=== PATIENT | male | born 1935 | race Caucasian/White ===

== ENCOUNTER 2018-05-01 11:07 | Inpatient (IN) | payer OTHER ==
[~2018-05-01] VITALS: Ht 177.8 cm; Wt 60.8 kg
[2018-05-01 11:07] VITALS: BP 120/81
[2018-05-01] MEDS ORDERED: NACL 0.9% 1,000 ML IV ONE ×2 (12:15)
[2018-05-01 12:55] LABS: BASOPHILS # (AUTO) 0.1 K/uL (0.00-0.22); BASOPHILS % (AUTO) 1.6 % (0.0-2.0); EOSINOPHILS # (AUTO) 0.3 K/uL (0-0.4); EOSINOPHILS % (AUTO) 4.8 % (0.0-4.0); HEMATOCRIT 40.6 % (36-52); HEMOGLOBIN 13.4 g/dL (12.0-18.0); LYMPHOCYTES # (AUTO) 0.9 K/uL (2.0-11.5); LYMPHOCYTES % (AUTO) 13.3 % (20.5-51.1); MEAN CORPUSCULAR HEMOGLOBIN 31 pg (27-31); MEAN CORPUSCULAR HGB CONC 33 g/dL (33-37); MEAN CORPUSCULAR VOLUME 94.7 fL (80-94); MONOCYTES # (AUTO) 0.5 K/uL (0.8-1.0); MONOCYTES % (AUTO) 8.1 % (1.7-9.3); NEUTROPHILS # (AUTO) 4.9 K/uL (1.8-7.7); NEUTROPHILS % (AUTO) 72.2 % (42.2-75.2); PLATELET COUNT (AUTO) 299 K/uL (140-450); RED BLOOD CELL COUNT(AUTO) 4.29 MIL/uL (4.20-6.10); RED CELL DISTRIBUTION WIDTH 15.2 % (11.6-13.7); WHITE BLOOD COUNT (AUTO) 6.8 K/uL (4.8-10.8)
[2018-05-01 13:13] LABS: ALBUMIN 3.5 g/dL (3.4-5.0); ANION GAP 11.5 (8-16); ASPARTATE AMINOTRANSFERASE 20 U/L (15-37); CARBON DIOXIDE 28.6 mmol/L (21-32); CHLORIDE 101 mmol/L (98-107); CREATININE 1.7 mg/dL (0.7-1.3); GLUCOSE 90 mg/dL (74-106); POTASSIUM 4.1 mmol/L (3.5-5.1); SODIUM SERUM 137 mmol/L (136-145); TOTAL BILIRUBIN 0.5 mg/dL (0.0-1.0); UREA NITROGEN, BLOOD 33 mg/dL (7-18)
[2018-05-01 14:46] LABS: BARBITURATE, URINE NEG. ng/ml (NEG <=200); BENZODIAZEPINE, URINE NEG. ng/mL (NEG <=200); CANNABINOID, URINE NEG. ng/mL (NEG <=50); COCAINE, URINE NEG. ng/mL (NEG <=300); OPIATE, URINE NEG. ng/mL (NEG <=2000); PHENCYCLIDINE SCREEN,URINE NEG. ng/mL (NEG <=25)
[2018-05-01 15:02] LABS: APPEARANCE,URINE HAZY (CLEAR); BILIRUBIN,URINE NEGATIVE (NEGATIVE); BLOOD, URINE TRACE (NEGATIVE); COLOR,URINE YELLOW (YELLOW); LEUKOCYTE ESTERASE ,URINE NEGATIVE (NEGATIVE); NITRITE, URINE POSITIVE (NEGATIVE); PH,URINE 6.5 (5.0-9.0); UGLUCOSE NEGATIVE (NEGATIVE)
[2018-05-01] MEDS: NACL 0.9% 1,000 ML IV SCH (15:16)
[2018-05-01 15:17] LABS: RBC,URINE NONE SEEN /HPF (0-5); WBC,URINE 20-60 /HPF (0-5)
[2018-05-01] MEDS ORDERED: MORPHINE SULFATE 4 MG/ML SYR IVP PRN (15:20)
[2018-05-01] MEDS ORDERED: HYDROcodone/APAP 5/325 MG 1 TAB TAB PO PRN (15:20)
[2018-05-01] MEDS ORDERED: DOCUSATE SODIUM 100 MG GELCAP PO PRN (15:20)
[2018-05-01] MEDS ORDERED: ZOLPIDEM 5 MG TAB PO PRN (15:20)
[2018-05-01] MEDS ORDERED: ONDANSETRON 4 MG/2 ML VIAL IM/IVP PRN (15:20)
[2018-05-01] MEDS ORDERED: ACETAMINOPHEN 325 MG TAB PO PRN (15:20)
[2018-05-01] MEDS: LORazepam 2 MG/ML VIAL IM/IVP PRN (15:47)
[2018-05-01] MEDS ORDERED: cefTRIAXone 1,000 MG VIAL ONE (16:00)
[2018-05-01] MEDS ORDERED: HALOPERIDOL IM 5 MG/ML VIAL IM ONE (16:00)
[2018-05-01] MEDS ORDERED: diphenhydrAMINE 50 MG/ML VIAL IM ONE (16:00)
[2018-05-01] MEDS ORDERED: LIDOCAINE 1% ***ER ONLY *** 50 ML ONE (16:01)
[2018-05-01 16:25] LABS: CHOL/HDL RATIO 2.6 (1-4.5); MAGNESIUM 2.3 mg/dL (1.8-2.4); PHOSPHORUS 2.9 mg/dL (2.5-4.9); THYROID STIMULATING HORMONE 0.85 uIU/mL (0.34-3.74)
[2018-05-01 20:00] VITALS: BP 166/86
[2018-05-02] VITALS: BP 159/96
[2018-05-02 04:00] VITALS: BP 161/77
[2018-05-02] MEDS: NACL 0.9% 1,000 ML IV SCH ×3 (05:00→18:35)
[2018-05-02 08:00] VITALS: BP 148/86
[2018-05-02] MEDS: LACTOBACILLUS RHAMNOSUS GG 1 EACH CAP PO SCH (09:10)
[2018-05-02 12:00] VITALS: BP 133/85
[2018-05-02] MEDS ORDERED: INFLUENZA VIRUS VACCINE QUAD 0.5 ML SYR IMVAC PRN (12:15)
[2018-05-02 13:01] LABS: BASOPHILS # (AUTO) 0.1 K/uL (0.00-0.22); BASOPHILS % (AUTO) 1.2 % (0.0-2.0); EOSINOPHILS # (AUTO) 0.5 K/uL (0-0.4); EOSINOPHILS % (AUTO) 7.2 % (0.0-4.0); HEMATOCRIT 40.5 % (36-52); HEMOGLOBIN 13.4 g/dL (12.0-18.0); LYMPHOCYTES # (AUTO) 1.1 K/uL (2.0-11.5); LYMPHOCYTES % (AUTO) 16.1 % (20.5-51.1); MEAN CORPUSCULAR HEMOGLOBIN 31 pg (27-31); MEAN CORPUSCULAR HGB CONC 33 g/dL (33-37); MEAN CORPUSCULAR VOLUME 94.7 fL (80-94); MONOCYTES # (AUTO) 0.6 K/uL (0.8-1.0); NEUTROPHILS # (AUTO) 4.8 K/uL (1.8-7.7); NEUTROPHILS % (AUTO) 67.5 % (42.2-75.2); PLATELET COUNT (AUTO) 286 K/uL (140-450); RED BLOOD CELL COUNT(AUTO) 4.28 MIL/uL (4.20-6.10); RED CELL DISTRIBUTION WIDTH 15.6 % (11.6-13.7); WHITE BLOOD COUNT (AUTO) 7.2 K/uL (4.8-10.8)
[2018-05-02 13:53] LABS: ANION GAP 16.8 (8-16); CARBON DIOXIDE 26.5 mmol/L (21-32); CHLORIDE 101 mmol/L (98-107); CREATININE 1.6 mg/dL (0.7-1.3); GLUCOSE 101 mg/dL (74-106); POTASSIUM 4.3 mmol/L (3.5-5.1); SODIUM SERUM 140 mmol/L (136-145); UREA NITROGEN, BLOOD 22 mg/dL (7-18)
[2018-05-02 16:00] VITALS: BP 131/89
[2018-05-02 20:00] VITALS: BP 113/62
[2018-05-03] VITALS: BP 112/62
[2018-05-03 04:00] VITALS: BP 145/90
[2018-05-03 07:02] LABS: BASOPHILS % (AUTO) 0.7 % (0.0-2.0); EOSINOPHILS # (AUTO) 0.5 K/uL (0-0.4); EOSINOPHILS % (AUTO) 7.2 % (0.0-4.0); HEMATOCRIT 40.1 % (36-52); LYMPHOCYTES # (AUTO) 1.3 K/uL (2.0-11.5); LYMPHOCYTES % (AUTO) 17.6 % (20.5-51.1); MEAN CORPUSCULAR HEMOGLOBIN 31 pg (27-31); MEAN CORPUSCULAR HGB CONC 32 g/dL (33-37); MEAN CORPUSCULAR VOLUME 94.9 fL (80-94); MONOCYTES # (AUTO) 0.6 K/uL (0.8-1.0); MONOCYTES % (AUTO) 8.1 % (1.7-9.3); NEUTROPHILS # (AUTO) 4.8 K/uL (1.8-7.7); NEUTROPHILS % (AUTO) 66.4 % (42.2-75.2); PLATELET COUNT (AUTO) 269 K/uL (140-450); RED BLOOD CELL COUNT(AUTO) 4.22 MIL/uL (4.20-6.10); RED CELL DISTRIBUTION WIDTH 15.4 % (11.6-13.7); WHITE BLOOD COUNT (AUTO) 7.3 K/uL (4.8-10.8)
[2018-05-03 07:18] LABS: ANION GAP 11.5 (8-16); CARBON DIOXIDE 25.6 mmol/L (21-32); CHLORIDE 105 mmol/L (98-107); CREATININE 1.4 mg/dL (0.7-1.3); GLUCOSE 93 mg/dL (74-106); POTASSIUM 4.1 mmol/L (3.5-5.1); SODIUM SERUM 138 mmol/L (136-145); UREA NITROGEN, BLOOD 20 mg/dL (7-18)
[2018-05-03 07:21] LABS: MAGNESIUM 1.9 mg/dL (1.8-2.4); PHOSPHORUS 2.9 mg/dL (2.5-4.9)
[2018-05-03 08:00] VITALS: BP 137/93
[2018-05-03] MEDS: LACTOBACILLUS RHAMNOSUS GG 1 EACH CAP PO SCH (08:07)
[2018-05-03 12:00] VITALS: BP 139/86
[2018-05-03] MEDS: NACL 0.9% 1,000 ML IV SCH ×2 (12:50→20:17)
[2018-05-03] MEDS: LORazepam 2 MG/ML VIAL IM/IVP PRN ×2 (15:09→22:05)
[2018-05-03 16:00] VITALS: BP 130/89
[2018-05-03 19:39] VITALS: BP 153/78
[2018-05-03] MEDS ORDERED: hydrALAZINE 20 MG/ML VIAL IVP PRN (23:30)
[2018-05-04] VITALS: BP 163/90
[2018-05-04 04:00] VITALS: BP 151/85
[2018-05-04] MEDS: NACL 0.9% 1,000 ML IV SCH (05:45)
[2018-05-04] MEDS ORDERED: CEPH250C16 PO (05:51)
[2018-05-04] MEDS ORDERED: LACT10CA1 PO (05:51)
[2018-05-04 08:00] VITALS: BP 170/93
[2018-05-04] MEDS: LACTOBACILLUS RHAMNOSUS GG 1 EACH CAP PO SCH (08:40)
[2018-05-04 12:00] VITALS: BP 112/72
[2018-05-04 16:00] VITALS: BP 113/65
[2018-05-04 19:08] LABS: ANION GAP 13.4 (8-16); CARBON DIOXIDE 23.5 mmol/L (21-32); CHLORIDE 104 mmol/L (98-107); CREATININE 1.3 mg/dL (0.7-1.3); GLUCOSE 95 mg/dL (74-106); POTASSIUM 3.9 mmol/L (3.5-5.1); SODIUM SERUM 137 mmol/L (136-145); UREA NITROGEN, BLOOD 20 mg/dL (7-18)
[2018-05-04 20:00] VITALS: BP 135/69
[2018-05-04] MEDS ORDERED: ZOLPIDEM 5 MG TAB PO SCH ×2 (21:00)
[2018-05-05] VITALS: BP 140/70
[2018-05-05 04:00] VITALS: BP 130/79
[2018-05-05 08:00] VITALS: BP 138/79
[2018-05-05] MEDS: LACTOBACILLUS RHAMNOSUS GG 1 EACH CAP PO SCH (08:29)
[2018-05-05] MEDS ORDERED: FOLIC ACID 1 MG TAB PO SCH (09:00)
[2018-05-05] MEDS ORDERED: hydrALAZINE 25 MG TAB PO PRN (09:55)
[2018-05-05] MEDS ORDERED: ALBUTEROL SULFATE/IPRATROPIU 3 ML SOL IH PRN (10:00)
[2018-05-05 12:00] VITALS: BP 117/82
[2018-05-05] MEDS ORDERED: ALBU3SOL83 IH (15:29)
[2018-05-05] MEDS ORDERED: ZOLP5TAB1 PO (15:29)
[2018-05-05] MEDS ORDERED: DOCU-299 PO (15:29)
[2018-05-05] MEDS ORDERED: HYDR-4420 PO (15:29)
[2018-05-05] MEDS ORDERED: FOLI1TAB90 PO (15:29)
[2018-05-05 16:00] VITALS: BP 110/78
[2018-05-05] MEDS ORDERED: PNEUMOCOCCAL VACCINE 23 MCG/0.5 ML VIAL IMVAC SCH (16:25)
== END 2018-05-05 17:10 | DRG 682 ==
LOC: MED 11:07 → MTU 15:21
PROVIDERS: ADMIT General Practice; ATTEND General Practice
DX: N17.0 Acute kidney failure with tubular necrosis (principal); G93.41 Metabolic encephalopathy; N39.0 Urinary tract infection, site not specified; F03.91 Unspecified dementia, unspecified severity, with behavioral disturbance; E86.0 Dehydration; Z96.649 Presence of unspecified artificial hip joint; J44.9 Chronic obstructive pulmonary disease, unspecified; I10 Essential (primary) hypertension; K21.9 Gastro-esophageal reflux disease without esophagitis; K74.60 Unspecified cirrhosis of liver; E53.8 Deficiency of other specified B group vitamins; D75.89 Other specified diseases of blood and blood-forming organs; Z59.0 Homelessness; Z95.0 Presence of cardiac pacemaker
CPT/HCPCS: 36415; 70450; 71045; 80048; 80053; 80305; 81001; 82140; 82607; 83036; 83690; 83735; 83880; 84100; 84134; 84443; 84484; 85025; 85610; 85730; 87081; 87086; 87186; 90658; 90732; 93880; 96361; 96372; 96374; 96375; 97110; 97116; 97530; 99285; G0482; J0360; J0696; J1200; J1630; J2001; J2060; J7030; J7060; Q0092